=== PATIENT | female | born 1950 | race Caucasian/White ===

== ENCOUNTER 2020-11-20 20:37 | Inpatient (IN) | payer OTHER, MEDICARE ==
[~2020-11-20] VITALS: Ht 175.3 cm; Wt 111.5 kg
[~2020-11-20 20:37] MED LIST: ACETAMINOPHEN325 M1 PO; ALEVE220 M1 PO; ASA81BEC PO; COLACE 100 MG100 MG PO; COUMADIN 2 MG TA2 M1 PO; HYDROCODON-ACE1 EAC7 PO; IRON325 PO; LEVOTHROID25 MCG PO; MIRALAX17 GM PO; MUCINEX TA600 MG/TA2 PO; NOHOMEMEDICATIONS; NORCO 5-325 TA1 EACH PO; SENOKOT-S1 TA1 PO
[2020-11-20 20:55] VITALS: BP 146/63
--- NOTE | 2020-11-20 21:38 | NUR ---
AFTER RN AND PROVIDER ASSESSMENT COMPLETED AND PLAN OF CARE DISCUSSED WITH PT PT THEN STATING THAT SHE IS SUICIDAL, PT HAD PREVIOUSLY DENIES THESE THOUGHTS TO THIS RN ON MY INITIAL ASSESSMENT
[2020-11-20 21:50] LABS: CALCIUM 8.9 mg/dL (8.5-10.1); CREATININE 1.3 mg/dL (0.6-1.0); POTASSIUM 3.4 mmol/L (3.5-5.1)
[2020-11-20 22:06] LABS: ABSOLUTE NEUTROPHILS 2.4 thou/uL (1.4-8.2); BASOPHILS 0.2 % (0.0-2.0); EOSINOPHILS 0.1 % (0.0-3.0); HEMATOCRIT 36.5 % (37.0-47.0); LYMPHOCYTES 20.1 % (24.0-44.0); MCH 27.7 pg (26.0-34.0); MCHC 32.9 g/dL (28.0-37.0); MCV 84.4 fL (80.0-100.0); MONOCYTES 10.4 % (1.0-8.0); PLATELET COUNT 173 thou/uL (150-400); POLYS 69.2 % (36.0-66.0); RBC 4.33 mil/uL (4.20-5.00); RDW 15.2 % (10.5-14.5); WBC 3.5 thou/uL (4.0-11.0)
[2020-11-20] MEDS ORDERED: FEMARA2.5 MG (22:13)
[2020-11-20] MEDS ORDERED: EFFEXOR XR75 MG PO (22:13)
[2020-11-20] MEDS ORDERED: NEURONTIN 300M300 M2 PO (22:14)
[2020-11-20] MEDS ORDERED: CRANBERRY500 M3 PO (22:14)
[2020-11-20] MEDS ORDERED: VALACYCLOVIR1000 MG PO (22:16)
[2020-11-21 05:35] LABS: HEMOGLOBIN 11.8 gm/dL (12.0-15.0); MCH 28.5 pg (26.0-34.0); MCHC 33.8 g/dL (28.0-37.0); MCV 84.4 fL (80.0-100.0); RBC 4.15 mil/uL (4.20-5.00); RDW 15.1 % (10.5-14.5); WBC 2.7 thou/uL (4.0-11.0)
[2020-11-21 05:36] LABS: CALCIUM 8.9 mg/dL (8.5-10.1); CREATININE 1.1 mg/dL (0.6-1.0); POTASSIUM 3.5 mmol/L (3.5-5.1)
[2020-11-21 16:16] VITALS: BP 134/69
[2020-11-21 17:05] VITALS: BP 137/68
--- NOTE | 2020-11-21 17:40 | NUR ---
PATIENT ARRIVED FROM ED AT APPROX 1720. VSS. C/O DISCOMFORT ON R SIDE BECAUSE OF SHINGLES. RASH VISUALIZED ON R SHOULDER GOING DOWN UPPER ARM. FLUIDS RESUMED AT 100 MLS/HR. HEART HEALTHY DIET RESUMED. ACCUCHECKS IN PLACE. PATIENT OVSERVED WALKING FROM BED TO BATHROOM W NO ISSUES. VOICING NO OTHER NEEDS. ENDORSED TO MOLDER WAX BALL
[2020-11-21 20:07] VITALS: BP 118/61
[2020-11-22 01:06] LABS: GLYCOHEMOGLOBIN (HGB A1C) 5.8 % (4.8-5.6)
[2020-11-22 04:37] VITALS: BP 142/79
[2020-11-22 05:23] LABS: ABSOLUTE NEUTROPHILS 1.6 thou/uL (1.4-8.2); BASOPHILS 0.5 % (0.0-2.0); EOSINOPHILS 0.1 % (0.0-3.0); HEMATOCRIT 33.9 % (37.0-47.0); HEMOGLOBIN 11.5 gm/dL (12.0-15.0); MCH 28.9 pg (26.0-34.0); MCV 84.8 fL (80.0-100.0); MONOCYTES 12.8 % (1.0-8.0); PLATELET COUNT 168 thou/uL (150-400); POLYS 53.6 % (36.0-66.0); RBC 3.99 mil/uL (4.20-5.00); RDW 14.9 % (10.5-14.5)
--- NOTE | 2020-11-22 05:46 | NUR ---
ASSUMED CARE OF PT AT SHIFT CHANGE. PT IS AOX4 AND LETS NEEDS BE KNOWN. PT IS UP AD AVILA. ASSESSMENT CHARTED. PT REPORTED SOME PAIN; PRN TYLENOL PROVIDED. ANTI-VIRAL TREATMENT CONTINUED. PT WAS ABLE TO GET COMFORTABLE AND SLEEP PART OF THE SHIFT. VSS AND NO S/S OF ACUTE DISTRESS. WILL CONTINUE TO MONITOR FOR CHANGES.
[2020-11-22 05:59] LABS: ALBUMIN 3.1 g/dL (3.4-5.0); CALCIUM 8.8 mg/dL (8.5-10.1); CREATININE 1.1 mg/dL (0.6-1.0); POTASSIUM 4.2 mmol/L (3.5-5.1); TOTAL BILIRUBIN 1.4 mg/dL (0.2-1.0); TOTAL PROTEIN 6.3 g/dL (6.4-8.2)
[2020-11-22 08:00] VITALS: BP 147/78
--- NOTE | 2020-11-22 14:34 | NUR ---
ASSUMED CARE OF PATIENT CARE AT SHIFT CHANGE. ASSESSMENT CHARTED. MEDICATIONS ADMINISTERED PER EMAR. PATIENT IS A&OX4 ABLE TO MAKE NEEDS KNOWN. PATIENT IS A SBA TO THE BATHROOM WITH STEADY GAIT. IV KEEPS BUILDING PRESSURE; PLACED LAST NIGHT BUT RED AROUND AREA. PROVIDER NOTIFIED. SHINGLES RASH STILL PRESENT. NEURO ROUNDED ON PATIENT. SEE TESTS ORDERED. STILL VOICING DEFECIT ON R HAND. OT/PT WORKED WITH PATIENT; DID WELL. NO WEEKEND DISCHARGE ANTICIPATED; ANTI-VIRAL INFUSING PRE NS BOLUS ON MIDLINE PLACED BY IV TEAM THIS DAY. PATIENT CONTINUES TO DENY PAIN BUT DOES VOICE DISCOMFORT RELIEVED BY COLD THERAPY. WILL CONTINUE TO MONITOR AND FOLLOW PLAN OF CARE
--- NOTE | 2020-11-22 16:32 | NUR ---
VAT CALLED FOR MIDLINE. 1ST WAS ANGIODRNAMIC ML PLACED IN ADA BASILIC, UNABLE TO FLUSH AFTER DIFFICULT WIRE REMOVAL SO HAD TO DC. ADA CEPHALIC WAS WIDELY PATENT WITH USG 20CM 4FR POWER ML INSERTED TO 2CM EXTERNAL WITH BRISK BR. PT TOLERATED WELL. ML RELEASED FOR IMMEDIATE USE PER PROTOCOL.
[2020-11-22 16:44] VITALS: BP 147/78
--- NOTE | 2020-11-22 16:49 | NUR ---
PT ADMITTED RELATED TO SHINGLES AND RIGHT SIDED WEAKNESS. CM REVIEWED CHART AND SPOKE WITH CARE TEAM. CM ATTEMTPE MULTIPAL VISITS WITH PT THIS DAY BUT WAS UNABLE TO ASSESS IN PERSON. PER CHART REVIEW. PT HAD BEEN LIVING IN 1 LEVEL HOME, ALONE, FULLY INDEPENDENT. 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 R HAND WEAKNESS STARTED ON WEDNESDAY, INCREASED TO WEDNESDAY AND NOW DIFFICULT WITH DEXTERITY/FMC, STRENGTH. REPORTS CORRLEATED TO TIMING WITH SHINGLES. PT IS ON ACYCLOVIR. OT RECOMMENDING OP THERAPY UPON DC AT THIS TIME. CM FOLLOWING REGARDING DC PLANNING.
[2020-11-22 19:55] VITALS: BP 165/63
--- NOTE | 2020-11-23 02:38 | NUR ---
TODAY THIS PT HAS BEEN NSR WITH STABLE VS. SHE HAS HAD SOME STATED PAIN BUT MEDICATION WAS GIVEN. SHE HAS BEEN USING ICE PACKS FOR HER R SHOULDER WHICH SEEMS TO HELP HER GREATLY. SHE HAS BEEN TOLERATING HER FLUIDS WELL AND HAS OTHERWISE BEEN ASLEEP FOR MOST OF THE NIGHT AWAITING FOR THE NEXT PLAN.
--- NOTE | 2020-11-23 11:02 | NUR ---
ASSUMED PT CARE THIS AM. PT A&OX4, ABLE TO MAKE NEEDS KNOWN. PATIENT REPORTING PAIN IN HER RIGHT SHOULDER WITH ADEQUATE PAIN RELIEF. PATIENT REMAINS CONTINENT. PATIENT REPORTING WEAKNESS IN HER RIGHT HAND. PATIENT IS ON ROOM AIR. IV PATENT. MEDICATIONS TAKEN WITHOUT ISSUE. CALL LIGHT WITHIN REACH.
[2020-11-23 11:53] LABS: CALCIUM 8.8 mg/dL (8.5-10.1); CREATININE 1.2 mg/dL (0.6-1.0); POTASSIUM 4.1 mmol/L (3.5-5.1)
[2020-11-23 19:15] VITALS: BP 159/91
--- NOTE | 2020-11-24 02:36 | NUR ---
patient had a shower this shift.pain controlled this shift. patient right shoulder has rednes with open lesions, black spot noted in between the breast. patient is up at reynaldo and ambulates with steady gaits. patient in bed asleep at this time breathing regular and unlaboured.
[2020-11-24 09:34] VITALS: BP 160/98
--- NOTE | 2020-11-24 12:07 | NUR ---
ASSUMED PT CARE THIS AM. PT A&OX4, ABLE TO MAKE NEEDS KNOWN. PATIENT REPORTING NO PAIN THIS AM. BLISTERS AND SCABS TO BACK OF RIGHT SHOULDER AND RIGHT CHEST. PATIENT REPORTING WEAKNESS TO RIGHT HAND. PATIENT REMAINS CONTINENT, UP TO BATHROOM. IV PATENT, SALINE LOCKED. PATIENT IS ON ROOM AIR. CALL LIGHT WITHIN REACH.
[2020-11-24 16:29] VITALS: BP 194/91
[2020-11-24 20:38] VITALS: BP 176/88
--- NOTE | 2020-11-25 02:46 | NUR ---
PT CARE ASSUMED WITH PT IN BED WATCHING TV.PT IS A/O X4.PT IS UP WITH STANDBY ASSIST.PT C/O PAIN AND PAIN MANAGED WITH NORCO.PT ALSO USING ICE PACK TO HELP WITH THE BURNING PAIN ON THE RT BACK.PT ALSO WITH SOME RT SIDED WEAKNESS.PT IS ACCCUCHECK ACHS.IV MIDLINE IN ADA SL.PT TAKE MEDS WHOLE WITH NO ISSUES.PT ON ISOLATION FOR SHINGLES.WILL CONTINUE TO MONITOR PER POC
[2020-11-25 07:55] LABS: ABSOLUTE NEUTROPHILS 2.6 thou/uL (1.4-8.2); BASOPHILS 0.3 % (0.0-2.0); EOSINOPHILS 0.4 % (0.0-3.0); HEMATOCRIT 36.8 % (37.0-47.0); LYMPHOCYTES 27.2 % (24.0-44.0); MCH 27.7 pg (26.0-34.0); MCHC 32.5 g/dL (28.0-37.0); MCV 85.3 fL (80.0-100.0); PLATELET COUNT 220 thou/uL (150-400); POLYS 66.1 % (36.0-66.0); RBC 4.31 mil/uL (4.20-5.00); RDW 14.8 % (10.5-14.5)
[2020-11-25 08:08] LABS: ALBUMIN 3.2 g/dL (3.4-5.0); CALCIUM 8.9 mg/dL (8.5-10.1); CREATININE 1.2 mg/dL (0.6-1.0); TOTAL BILIRUBIN 1.2 mg/dL (0.2-1.0); TOTAL PROTEIN 6.5 g/dL (6.4-8.2)
[2020-11-25 09:08] VITALS: BP 136/67
--- NOTE | 2020-11-25 15:21 | NUR ---
Assumed pt care at 7am.Pt in bed most of the time today. Assessment completed. vss.Meds given as ordered and well tolerated.Pt c/o shingles pain,lidocaine patch applied to rt upper chest.Iv acyclovir given as ordered. Will continue to monitor.
[2020-11-25 16:55] VITALS: BP 137/83
[2020-11-25 20:59] VITALS: BP 125/77
--- NOTE | 2020-11-26 01:53 | NUR ---
ASSUMED CARE OF PT AT SHIFT CHANGE. PT IS AOX4 AND LETS NEEDS BE KNOWN. PT IS UP AD AVILA. PT REPORTED SOME RUE PAIN; PRNS PROVIDED. ANTIVIRAL TREATMENT CONTINUED. ISOLATION MAINTAINED. PT WAS ABLE TO GET COMFORTABLE AND SLEEP PART OF THE SHIFT. VSS AND NO S/S OF ACUTE DISTRESS. WILL CONTINUE TO MONITOR FOR CHANGES.
[2020-11-26 07:38] VITALS: BP 136/72
--- NOTE | 2020-11-26 12:56 | NUR ---
Assumed pt care at 7am.Assessment completed.vss.Pt c/o rt upper arm pain. Am meds given and well tolerated.Dr Maher and Jaqueline here,order noted.Consult called to Dr Edwards as ordered. Pt and Ot exercise with pt.Still in contact isolation. Will continue to monitor.
--- NOTE | 2020-11-26 16:28 | NUR ---
ID CONSULT TO SET UP HOME INFUSION FOR 4 MORE DAYS OF IV ACYCLOVIR. CM MET WITH PT AT BEDSIDE THIS DAY. CM EXPLAINED HOME INFUSION SERVICES.. PT HAS JUST HAD ULTRASOUND FOR UE DVT.. PT HADN'T BEEN ORDERED THIS AM IT WAS SINCE ORDERD AND 5N WAS CONSULTED. PT INDICATED THAT DR. CLINE HAD MADE IT SOUND LIKE PT WAS GOING TO STAY HERE FOR DURATION OF HER IV MEDICATION TREATMENT AND SHE HAD ASKED TO DC EARLY WEDNESDAY AM SHE IS GOING TO [place] FOR AN ANMIAL SHOW ON WEDNESDAY. CM TO [place] CLARIFICATION ON DC DISPOSITION. CM FOLLOWING REGARDING DC PLANNING.
[2020-11-26 17:04] VITALS: BP 137/80
--- NOTE | 2020-11-26 18:38 | NUR ---
Alert and orientated X 4. Conversive without s/o distress. Breath sounds clear. Reg HR auscultated. Color pale pink with brisk capillary refill and palpable peripheral pulses. Midline per R upper arm with edema and eccomosis at top of arm, drsg dry and intact with lidocaine patch above arm. Independent with voiding. Active bowel sounds over soft, rounded abdomen. Erythematous rash with broken vesicles over mid back and chest. Maintaining contact isolation.
[2020-11-26 19:59] VITALS: BP 126/70
--- NOTE | 2020-11-27 02:59 | NUR ---
ASSUMED CARE OF PT AT SHIFT CHANGE. PT IS AOX4 AND LETS NEEDS BE KNOWN. PT IS UP AD AVILA. PT REPORTED SOME RUE PAIN; PRN PAIN MEDS AND HEATING PADS PROVIDED. ANTIVIRAL TREATMENT CONTINUED. PT DENIED NAUSEA OR SOA. PT SHOWERED THIS SHIFT. ASSESSMENT CHARTED. PT WAS ABLE TO GET COMFORTABLE AND SLEEP PART OF THE SHIFT. VSS AND NO S/S OF ACUTE DISTRESS. WILL CONTINUE TO MONITOR.
[2020-11-27 08:00] VITALS: BP 131/72
--- NOTE | 2020-11-27 13:34 | NUR ---
Assumed pt care at 7am.Assessment completed.vss.Pt left upper arm red and swollen and warm to touch. Dr Parsons here,order noted.Pt tolerated meds and diet.Iv team notified about midline replacement today.Pt will possibly dc home when stable.Heating pad applied to rt upper arm.Will continue to monitor.
--- NOTE | 2020-11-27 13:51 | NUR ---
CARE TEAM INDICATED THAT PT IS TO REAMIN HERE FOR THE LAST DOSES OF HER IV ACYCLOVIR WHICH SHE SHOULD FINISH ON WEDNESDAY. IT IS ANTICIPATED THAT PT WILL DC WEDNESDAY LIKELY HOME WITH ORDERS FOR OP OT. PT LIKELY WILL HAVE NO OTHER CM NEEDS.
--- NOTE | 2020-11-27 14:22 | NUR ---
Nutrition: pt admitted with shingles and is undergoing IV treatment to be completed by wednesday. Seen for LOS. PMH: Cardiac arrest, GIB, breast CA. Pt is eating great 100% of meals on heart healthy diet. Bedscale weights running ~20# higher than pt reported usual. A1C 5.8 with no prior hx of DM. Consider carb controlled diet. Low nutrition risk.
[2020-11-27 15:22] VITALS: BP 123/62
[2020-11-27 19:59] VITALS: BP 114/53
--- NOTE | 2020-11-28 02:52 | NUR ---
PT CARE ASSUMED WITH FAMILY AT BEDSIDE WITH PT SITTING IN THE CHAIR AT 1900.PT IS A/O X4.PT IS UP AD AVILA AND EDUCATED TO CALL FOR HELP.PT C/O PAIN AND PAIN MANAGED WITH NORCO.PT HAS A HEATING PAD FOR RT ARM AND SAYS IT HELPS WITH PAIN ON RT ARM.IV ACCESS ON RH SL.WILL CONTINUE TO MONITOR PER POC
[2020-11-28 08:25] VITALS: BP 139/69
--- NOTE | 2020-11-28 13:34 | NUR ---
Discussed during los with hospital, ready for dc on wednesday11/30/20, rx for outpt ot placed on chart for pierre to take with her when she or family sets up outpt therapy. will cont following as needed for dc needs.
[2020-11-28 16:04] VITALS: BP 120/59
--- NOTE | 2020-11-28 17:53 | NUR ---
Assumed pt care this am, vs stable. POC followed with no signs or verbalizations of distress noted. Diet and medicatiosn are tolerated well. Heat applied to the right arm, old IV infiltrated. New IV placed by IV team, for completion of therapy, anticipated dc over the weekend.
[2020-11-28 19:57] VITALS: BP 121/67
[2020-11-29 01:54] LABS: ABSOLUTE NEUTROPHILS 2.7 thou/uL (1.4-8.2)
[2020-11-29 01:57] LABS: BASOPHILS 0.5 % (0.0-2.0); EOSINOPHILS 1.1 % (0.0-3.0); HEMATOCRIT 33.9 % (37.0-47.0); HEMOGLOBIN 11.7 gm/dL (12.0-15.0); LYMPHOCYTES 27.1 % (24.0-44.0); MCH 29.2 pg (26.0-34.0); MCHC 34.5 g/dL (28.0-37.0); MCV 84.6 fL (80.0-100.0); MONOCYTES 10.2 % (1.0-8.0); PLATELET COUNT 244 thou/uL (150-400); POLYS 61.1 % (36.0-66.0); RDW 14.8 % (10.5-14.5); WBC 4.5 thou/uL (4.0-11.0)
[2020-11-29 02:05] LABS: CALCIUM 8.8 mg/dL (8.5-10.1); CREATININE 1.1 mg/dL (0.6-1.0); POTASSIUM 4.1 mmol/L (3.5-5.1); TOTAL BILIRUBIN 1.2 mg/dL (0.2-1.0); TOTAL PROTEIN 6.4 g/dL (6.4-8.2)
--- NOTE | 2020-11-29 05:45 | NUR ---
Pt. rested quietly during the night when checked on during frequent rounds. Po pain meds given for pain (see emar) with some relief noted. Dressing to upper back is dry and intact.
[2020-11-29 08:00] VITALS: BP 126/67
[2020-11-29] MEDS ORDERED: NORCO7.5 PO (09:15)
[2020-11-29] MEDS ORDERED: VALTREX 500 MG500 MG PO (09:15)
[2020-11-29 12:20] VITALS: BP 126/67
--- NOTE | 2020-11-29 13:57 | NUR ---
Discussed during los with hospitalist, ready for dc home today with outpt therapy. Script on chart to send with pierre at dc.
--- NOTE | 2020-11-29 14:05 | NUR ---
Assumed pt care at 7am.Pt in bed resting and wanted to dc home today after lunch.Assessment completed.vss.Abd drsg applied to back rash from shingles. Meds given with breakfast and well tolerated.Dr Parsons here,dc order noted. Dc summary compile and reviewed with pt.rx given as ordered. Saline lock dc'd. At 1400,pt dc home in [place] accompanied by wellness specialist.
--- NOTE | 2020-12-05 10:52 | HC ---
[facility] [place] [address] CONSULTATION Name: YANELY GREENBERG Room #: 454-P [facility] M.R.#: [id number] Admission: 11/20/20 Attend Phys: Good Parsons Discharge: 11/29/20 Date of : 50 Report #: [id number] THIS REPORT FOR: cc: Renny Maher MD, Christopher B. MD Khosla, Parveen K. MD ~ HISTORY OF PRESENT ILLNESS: This is a 70-year-old female patient who was evaluated by me for possibility of encephalopathy. This patient developed shingles on her back as well as the right arm; she is pretty profoundly weak there. This happened all in relation to developing shingles in the right arm and the thoracic area. She does not think she is confused. We will try to talk to the hospitalist tomorrow. REVIEW OF SYSTEMS: Positive for pretty significant herpes zoster. ID is already consulted and they will be seeing the patient. She has right arm weakness, but she also has shingles there. She has some diminished GFR. She has a history of breast cancer. She has a history of a cardiac arrest. She has received chemotherapy in the past. She said she had spinal stenosis in the past; they tried to do some spinal in the past and they could not do that. She had some hip issues in the past, and that left her with some numbness. She also had multiple other joint problem. This was a relevant 14-point review of system. PAST MEDICAL HISTORY: Positive for multiple problems, which are summarized above. PAST SURGICAL HISTORY: She had laminectomies in the past. FAMILY HISTORY: Noncontributory. SOCIAL HISTORY: She denies the use of alcohol and tobacco. PHYSICAL EXAMINATION: NEUROLOGIC: Indicates she is alert, responsive. She is oriented. She knows who the president is. She knows what the hospital is. She believes her memory is at her baseline. Cranial nerve examination II-XII looks unremarkable. She does have a weakness in the right arm. She has a pretty profound herpes zoster in the upper thoracic area. Her sensation is diminished. Right leg looks unremarkable, or at least her baseline. Position sense was present there. There does not appear to be any ataxia. I could not look at the patient's fundus. VITAL SIGNS: Blood pressure is 137/68, respirations 18, pulse is 70, temperature is 97.9. CARDIAC: Unremarkable. RESPIRATORY: Unremarkable. [facility] [address] [place] [address] CONSULTATION Name: YANELY GREENBERG Room #: 454-P [facility] .R.#: [id number] Admission: 11/20/20 Attend Phys: Good Parsons Discharge: 11/29/20 Date of : 50 Report #: [id number] GENERAL: She is obese, but her hearing and vision looks adequate. LABORATORY DATA: White count is only 2.7. IMAGING: No imaging study had been done during this admission. IMPRESSION AND PLAN: The most likely cause for the patient's right arm weakness is that this patient has herpes zoster, which is affecting her nerves. She has a pretty significant problem in the thoracic area. She did have a prior laminectomy and I suspect contribution can occur from there, and we can do the MRI of the C-spine. She does not appear to be having any ____ issues, which can cause her symptoms and symptoms appear to be from the focal area. I discussed all of it with the patient in detail; she understands it and she wants to follow this plan. Thank you very much for this referral. <ELECTRONICALLY SIGNED> By: Henrry Howell MD 12/05/20 1052 [id number] Henrry Howell MD /nt
== END 2020-11-29 14:00 | disposition home or self-care (01) | DRG 865 ==
LOC: ER 20:37 → 4W 22:17 → EROBS 22:17 → 4W 11-21 17:04
PROVIDERS: Emergency Medicine; Nurse Practitioner Family; Psychiatry & Neurology Neurology; Specialist; ADMIT Hospitalist; ATTEND Hospitalist
DX: B02.8 Zoster with other complications (principal); R65.11 Systemic inflammatory response syndrome (SIRS) of non-infectious origin with acute organ dysfunction; N17.9 Acute kidney failure, unspecified; B02.29 Other postherpetic nervous system involvement; I80.8 Phlebitis and thrombophlebitis of other sites; M79.2 Neuralgia and neuritis, unspecified; R73.9 Hyperglycemia, unspecified; Z20.822 Contact with and (suspected) exposure to COVID-19; Z96.652 Presence of left artificial knee joint; Z96.643 Presence of artificial hip joint, bilateral; M48.03 Spinal stenosis, cervicothoracic region; R20.2 Paresthesia of skin; M16.10 Unilateral primary osteoarthritis, unspecified hip; Z88.6 Allergy status to analgesic agent; Z88.1 Allergy status to other antibiotic agents; Z87.81 Personal history of (healed) traumatic fracture; Z85.3 Personal history of malignant neoplasm of breast; Z90.12 Acquired absence of left breast and nipple; Z92.21 Personal history of antineoplastic chemotherapy
CPT/HCPCS: 10040; 27000